=== PATIENT | female | born 1940 | race Caucasian/White ===

== ENCOUNTER 2024-07-14 13:43 | Observation (INO) ==
[2024-07-14] MEDS: Iodixanol 320 (CONTRAST) 100 ML SDV IV ONE (13:54)
[2024-07-14 14:02] LABS: ABS Eosinophils 0.1 10^3/uL (0.0-0.5); ABS Lymphocytes 1.1 10^3/uL (1.0-4.8); ABS Monocytes 0.6 10^3/uL (0.0-0.9); ABS Neutrophils 4.8 10^3/uL (1.5-7.6); Hematocrit 39.9 % (35-45); Hemoglobin 13.4 g/dL (11.5-14.3); Lymphocyte % 17.2 %; Mean Corpuscular Hemoglobin 30.5 pg (27-33); Mean Corpuscular Hgb Conc 33.5 g/dL (31-36); Mean Corpuscular Volume 90.9 fL (80-97); Mean Platelet Volume 7.5 fL (7.5-11.2); Platelet Count 225 10^3/uL (150-450); Red Blood Count 4.39 10^6/uL (3.63-4.92); Red Cell Distribution Width 14.3 % (12-17); White Blood Count 6.7 10^3/uL (3.8-11.8)
[2024-07-14 14:08] LABS: Activated Partial Thrombo Time 29.4 seconds (26.0-38.0); INR 1.04 (0.85-1.14)
[2024-07-14] MEDS ORDERED: Sulfur Hexaflouride MICROSPHR 25 MG VIAL IV PRN (14:33)
[2024-07-14 14:37] LABS: Albumin 3.9 g/dL (3.2-5.2); Albumin/Globulin Ratio 2.1 (1-3); Calcium 10.3 mg/dL (8.6-10.3); Creatinine, Serum 0.6 mg/dL (0.51-0.95); Direct Bilirubin 0.1 mg/dL (0.03-0.18); Globulin 1.9 g/dL (2-4); HDL Cholesterol 50.1 mg/dL; Indirect Bilirubin 0.7 mg/dL (0.3-1.0); Potassium 4.2 mmol/L (3.5-5.0); Total Bilirubin 0.8 mg/dL (0.2-1.0); Total Protein 5.8 g/dL (6.4-8.9); eGFR CKD-EPI 88.5 (>60)
[2024-07-14] MEDS: Polyethylene Glycol 3350 17 GM PACKET PO SCH (16:07)
[2024-07-14] MEDS ORDERED: Senna TAB 8.6 mg TAB PO PRN (17:21)
[2024-07-14] MEDS: Enoxaparin 40 MG/0.4 ML SYR SUBCUT SCH (17:33)
[2024-07-14 17:46] LABS: TSH Ultra Thyroid Stim Horm 1.84 mcIU/mL (0.34-5.60)
[2024-07-14 17:55] LABS: Urine Appearance Clear; Urine Bilirubin Negative (Negative); Urine Blood Negative (Negative); Urine Color Light-Yellow; Urine Glucose Negative (Negative); Urine Ketones Negative (Negative); Urine Nitrite 2+ (Negative); Urine Protein Negative (Negative); Urine Specific Gravity 1.031 (1.002-1.030); Urine Urobilinogen 1+ (Negative); Urine pH 6.5 (5.0-8.0)
[2024-07-14 18:05] LABS: Urine Bacteria 1+ /HPF (Absent); Urine Red Blood Cell 1+(3-5/hpf) /HPF (0-Trace); Urine Squamous Epithelial Cell Present /HPF (Absent); Urine White Blood Cell 3+(>20/hpf) /HPF (0-Trace)
[2024-07-14] MEDS ORDERED: Senna TAB 8.6 mg TAB PO SCH (21:00)
[2024-07-14] MEDS ORDERED: Lidocaine PATCH 5% PATCH TRANSDERM PRN (21:23)
[2024-07-15] MEDS: CMCS:Desvenlafaxine 50 mg TAB ER (NF) PO SCH (09:35)
[2024-07-15] MEDS: Polyethylene Glycol 3350 17 GM PACKET PO SCH (09:36)
[2024-07-15] MEDS: NIACINAMIDE 500 MG PO SCH (11:04)
[2024-07-15 17:54] VITALS: BP 112/69
[2024-07-15] MEDS ORDERED: Nitrofurantoin (monohydrate/macrocrystals) 100 mg CAP PO ONE (17:58)
[2024-07-16] MEDS ORDERED: Nitrofurantoin (monohydrate/macrocrystals) 100 mg CAP PO SCH (09:00)
== END 2024-07-15 18:35 ==
LOC: ED 13:43 → EDHOLD 13:43 → SUATTDRO 14:34 → MEDTELE 07-15 02:45
PROVIDERS: ADMIT Family Medicine; ATTEND Internal Medicine